=== PATIENT | female | born 1975 | race Caucasian/White ===

== ENCOUNTER 2018-12-27 19:46 | Emergency (ER) | payer OTHER ==
[~2018-12-27] VITALS: Ht 149.9 cm; Wt 90.7 kg
[2018-12-27 20:26] VITALS: BP 172/120
--- NOTE | 2018-12-27 22:03 | NUR ---
PT AMBULATED TO ER [facility]
[2018-12-27] MEDS ORDERED: methylPREDNISolone SS 125 MG in WATER STERILE 2 ML IM ONE (22:05)
[2018-12-27] MEDS ORDERED: KETOROLAC 60 MG/2 ML VIAL IM ONE (22:05)
[2018-12-27] MEDS ORDERED: ALBUTEROL 0.083% 2.5 MG/3 ML NEBU INH ONE (22:05)
--- NOTE | 2018-12-27 22:21 | NUR ---
RT GIVING BREATHING TX AT THIS TIME.
--- NOTE | 2018-12-27 22:30 | NUR ---
PT BIB SELF FOR SOB , AND ALLERGIES. PT STATES SOB STARTED TODAY. RR EVEN AND UNLABORED, WHEEZES NOTED THROUGHOUT. PT STATES SHE HAS INHALER AT HOME BUT IT WAS NOT HELPING. PT C/O COUGH, EYE REDNESS AND DRAINAGE. PT SITTING IN CHAIR IN NO RR DISTRESS.
--- NOTE | 2018-12-27 23:00 | NUR ---
Patient discharged with v/s stable. Written and verbal after care instructions given and explained. Patient alert, oriented and verbalized understanding of instructions. Ambulatory with steady gait. All questions addressed prior to discharge. ID band removed. Patient advised to follow up with PMD. Rx of ALLERA, PREDNISONE, ALBUTEROL given. Patient educated on indication of medication including possible reaction and side effects. Opportunity to ask questions provided and answered. D/C BY DR ZUNIGA
[2018-12-27 23:24] VITALS: BP 170/92
== END 2018-12-27 23:00 | disposition home or self-care (01) ==
LOC: MED 19:46
DX: J30.9 Allergic rhinitis, unspecified (principal)
CPT/HCPCS: 94640; 94760; 96372; 99283; J1885; J2930; J7613

== ENCOUNTER 2021-06-04 20:57 | Emergency (ER) | payer OTHER ==
[~2021-06-04] VITALS: Ht 149.9 cm; Wt 81.6 kg
[2021-06-04 21:07] VITALS: BP 175/109
[2021-06-04 21:49] LABS: BILIRUBIN,URINE NEGATIVE (NEGATIVE); BLOOD, URINE NEGATIVE (NEGATIVE); COLOR,URINE YELLOW (YELLOW); LEUKOCYTE ESTERASE ,URINE 1+ (NEGATIVE); NITRITE, URINE NEGATIVE (NEGATIVE); UGLUCOSE NEGATIVE (NEGATIVE)
[2021-06-04 22:00] LABS: APPEARANCE,URINE HAZY (CLEAR)
[2021-06-04 22:26] LABS: RBC,URINE 0-5 /HPF (0-5)
[2021-06-04] MEDS ORDERED: ONDANSETRON 4 MG/2 ML VIAL IVP ONE (23:30)
[2021-06-04] MEDS ORDERED: KETOROLAC 30 MG/ML VIAL IVP ONE (23:30)
[2021-06-04] MEDS ORDERED: MORPHINE SULFATE 2 MG/ML SYR IVP ONE (23:30)
[2021-06-04] MEDS ORDERED: NACL 0.9% 1,000 ML IV SCH (23:30)
[2021-06-04 23:51] LABS: BASOPHILS # (AUTO) 0.1 K/uL (0.00-0.22); BASOPHILS % (AUTO) 0.5 % (0.0-2.0); EOSINOPHILS # (AUTO) 0.1 K/uL (0-0.4); EOSINOPHILS % (AUTO) 1.5 % (0.0-4.0); HEMATOCRIT 35.9 % (36-48); HEMOGLOBIN 12.2 g/dL (12.0-16.0); LYMPHOCYTES # (AUTO) 3.7 K/uL (2.5-16.5); LYMPHOCYTES % (AUTO) 38.6 % (20.5-51.1); MEAN CORPUSCULAR HEMOGLOBIN 29 pg (27-31); MEAN CORPUSCULAR HGB CONC 34 g/dL (33-37); MEAN CORPUSCULAR VOLUME 85.4 fL (80-94); MONOCYTES # (AUTO) 0.6 K/uL (0.8-1.0); MONOCYTES % (AUTO) 6.7 % (1.7-9.3); NEUTROPHILS % (AUTO) 52.7 % (42.2-75.2); PLATELET COUNT (AUTO) 357 K/uL (140-450); RED BLOOD CELL COUNT(AUTO) 4.21 MIL/uL (4.20-5.40); RED CELL DISTRIBUTION WIDTH 14.2 % (11.6-13.7); WHITE BLOOD COUNT (AUTO) 9.5 K/uL (4.8-10.8)
[2021-06-05 00:32] LABS: ALBUMIN 3.6 g/dL (3.4-5.0); ANION GAP 11.1 (8-16); CARBON DIOXIDE 28.7 mmol/L (21-32); CREATININE 0.8 mg/dL (0.6-1.3); TOTAL BILIRUBIN 0.3 mg/dL (0.0-1.0)
[2021-06-05 00:34] LABS: POTASSIUM 2.8 mmol/L (3.5-5.1)
[2021-06-05] MEDS ORDERED: POTASSIUM CHLORIDE 10 MEQ TABER PO ONE (00:35)
[2021-06-05] MEDS ORDERED: CLONIDINE HYDROCHLORIDE 0.1 MG TAB PO ONE (01:00)
[2021-06-05] MEDS ORDERED: CEPH-588 PO (02:59)
[2021-06-05] MEDS ORDERED: CLON0.1T16 PO (02:59)
[2021-06-05] MEDS ORDERED: cephALEXin 500 MG CAP PO ONE (03:00)
[2021-06-05 03:20] VITALS: BP 136/89
== END 2021-06-05 03:20 | disposition home or self-care (01) ==
LOC: MED 20:57
DX: R10.9 Unspecified abdominal pain (principal); E87.6 Hypokalemia; I10 Essential (primary) hypertension; J45.909 Unspecified asthma, uncomplicated; E03.9 Hypothyroidism, unspecified; Z87.448 Personal history of other diseases of urinary system
CPT/HCPCS: 36415; 74176; 80053; 81001; 84703; 85025; 87086; 96361; 96374; 96375; 99284; J1885; J2270; J2405; J7030; 81003

== ENCOUNTER 2021-07-21 20:25 | Emergency (ER) | payer OTHER ==
[~2021-07-21] VITALS: Ht 149.9 cm; Wt 87.1 kg
[~2021-07-21 20:25] MED LIST: CEPH-588 PO; CLON0.1T16 PO
[2021-07-21 20:54] VITALS: BP 198/119
--- NOTE | 2021-07-21 21:01 | NUR ---
patient to the bathroom for urine collection
--- NOTE | 2021-07-21 21:15 | NUR ---
patient to bed 8
--- NOTE | 2021-07-21 21:35 | NUR ---
URINE OBTAINED ; URINE PREG NEG
--- NOTE | 2021-07-21 22:35 | NUR ---
Dr. Cuellar examining patient.
[2021-07-21] MEDS ORDERED: diphenhydrAMINE 50 MG/ML VIAL IVP ONE (22:40)
[2021-07-21] MEDS ORDERED: PROCHLORPERAZINE 10 MG/2 ML VIAL IVP ONE (22:40)
[2021-07-21] MEDS ORDERED: NACL 0.9% 1,000 ML IV ONE (22:40)
--- NOTE | 2021-07-21 23:26 | NUR ---
PT RESTING 8/10 PAIN. FAMILY AT BEDSIDE
[2021-07-21] MEDS ORDERED: MORPHINE SULFATE 4 MG/ML SYR IVP ONE (23:40)
--- NOTE | 2021-07-21 23:47 | NUR ---
PT PLACED ON MONITOR.
--- NOTE | 2021-07-22 00:15 | NUR ---
PT RESTING , 06/30. PT STATES PAIN IS MUCH BETTER. B/P RETAKEN. SEE VITAL SIGNS
--- NOTE | 2021-07-22 01:01 | NUR ---
ER MD DR CHING AWARE OF PATIENTS CURRENT B/P READINGS
[2021-07-22] MEDS ORDERED: IBUP-2213 PO (01:03)
[2021-07-22] MEDS ORDERED: ACET-8386 PO (01:03)
[2021-07-22 01:25] VITALS: BP 176/107
--- NOTE | 2021-07-22 01:25 | NUR ---
Patient discharged with v/s stable. Written and verbal after care instructions given and explained. Patient verbalized understanding. Ambulatory with steady gait. All questions addressed prior to discharge. Advised to follow up with PMD.
--- NOTE | 2021-07-22 05:49 | NUR ---
The patient's care was reviewed and supervised by Ligia Melendrez RN. Chart checked.
== END 2021-07-22 01:25 | disposition home or self-care (01) ==
LOC: MED 20:25
DX: R51.9 Headache, unspecified (principal); R11.2 Nausea with vomiting, unspecified; I10 Essential (primary) hypertension; E03.9 Hypothyroidism, unspecified; Z98.890 Other specified postprocedural states; Z90.710 Acquired absence of both cervix and uterus; Z79.899 Other long term (current) drug therapy
CPT/HCPCS: 81002; 81025; 96361; 96374; 96375; 99284; J0780; J1200; J2270; J7030

== ENCOUNTER 2022-04-02 17:22 | Emergency (ER) | payer OTHER ==
[~2022-04-02] VITALS: Ht 149.9 cm; Wt 88.0 kg
[~2022-04-02 17:22] MED LIST changes: +ACET-8905 PO; +IBUP-2213 PO
[2022-04-02 17:35] VITALS: BP 179/100
--- NOTE | 2022-04-02 17:41 | NUR ---
DR. RICKETTS EVALUATING PATIENT IN TRIAGE
[2022-04-02] MEDS ORDERED: TRAM-748 PO (18:09)
[2022-04-02] MEDS ORDERED: NAPR-1704 PO (18:09)
--- NOTE | 2022-04-02 18:32 | NUR ---
Patient discharged with v/s stable. Written and verbal after care instructions given and explained for Cervical Radiculopathy. Patient alert, oriented and verbalized understanding of instructions. Ambulatory with steady gait. All questions addressed prior to discharge. ID band removed. Patient advised to follow up with PMD. Rx of Ultram, naproxen given. Patient educated on indication of medication including possible reaction and side effects. Opportunity to ask questions provided and answered.
== END 2022-04-02 18:32 | disposition home or self-care (01) ==
LOC: MED 17:22
DX: M54.12 Radiculopathy, cervical region (principal); I10 Essential (primary) hypertension; E03.9 Hypothyroidism, unspecified; Z87.448 Personal history of other diseases of urinary system; Z79.899 Other long term (current) drug therapy; Z79.891 Long term (current) use of opiate analgesic; Z79.2 Long term (current) use of antibiotics; Z79.1 Long term (current) use of non-steroidal anti-inflammatories (NSAID)
CPT/HCPCS: 73030; 93005; 99283

== ENCOUNTER 2022-10-04 17:05 | Emergency (ER) | payer OTHER ==
[~2022-10-04] VITALS: Ht 154.9 cm; Wt 86.2 kg
[~2022-10-04 17:05] MED LIST changes: +NAPR-1704 PO; +TRAM-748 PO
[2022-10-04 17:11] VITALS: BP 190/122; PULSE 91; RESP 18; TEMP 98.3; O2SAT 98
[2022-10-04] MEDS ORDERED: MORPHINE SULFATE 2 MG/ML SYR IVP STA (17:14)
[2022-10-04] MEDS ORDERED: diphenhydrAMINE 50 MG/ML VIAL IVP ONE (17:15)
[2022-10-04] MEDS ORDERED: ONDANSETRON 4 MG/2 ML VIAL IVP ONE (17:15)
[2022-10-04] MEDS ORDERED: NACL 0.9% 1,000 ML IV ONE (17:15)
[2022-10-04 17:52] VITALS: O2SAT 98
--- NOTE | 2022-10-04 17:52 | NUR ---
47YO F PRESENTS W/MID TO EPIGASTRIC ABD PAIN X 1 WK WORSENED 2 DAYS AGO, NAUSEA, VOMITING, CONSTIPATION, DIZZY, WEAK, TIRED, URINARY FREQUENCY, URINARY RETENSION. NOTED. PT DENIES FEVER, ARZATE, DIARRHEA, FLU SYMPTOMS, SOB, CP, DIET CHANGES. 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 HX: HYSTORECTOMY, MULTIPLE C-SEC
[2022-10-04 18:05] LABS: APPEARANCE,URINE CLEAR (CLEAR); BILIRUBIN,URINE NEGATIVE (NEGATIVE); BLOOD, URINE NEGATIVE (NEGATIVE); COLOR,URINE YELLOW (YELLOW); LEUKOCYTE ESTERASE ,URINE NEGATIVE (NEGATIVE); NITRITE, URINE NEGATIVE (NEGATIVE); PH,URINE 6.5 (5.0-9.0); UGLUCOSE NEGATIVE (NEGATIVE)
[2022-10-04 18:06] LABS: BASOPHILS # (AUTO) 0.1 K/uL (0.00-0.22); BASOPHILS % (AUTO) 1.3 % (0.0-2.0); EOSINOPHILS # (AUTO) 0.2 K/uL (0-0.4); EOSINOPHILS % (AUTO) 1.8 % (0.0-4.0); HEMATOCRIT 38.3 % (36-48); HEMOGLOBIN 12.7 g/dL (12.0-16.0); LYMPHOCYTES # (AUTO) 3.2 K/uL (2.5-16.5); LYMPHOCYTES % (AUTO) 29.3 % (20.5-51.1); MEAN CORPUSCULAR HEMOGLOBIN 29 pg (27-31); MEAN CORPUSCULAR HGB CONC 33 g/dL (33-37); MEAN CORPUSCULAR VOLUME 86.2 fL (80-94); MONOCYTES # (AUTO) 0.9 K/uL (0.8-1.0); NEUTROPHILS # (AUTO) 6.5 K/uL (1.8-7.7); NEUTROPHILS % (AUTO) 59.6 % (42.2-75.2); PLATELET COUNT (AUTO) 356 K/uL (140-450); RED BLOOD CELL COUNT(AUTO) 4.44 MIL/uL (4.20-5.40); RED CELL DISTRIBUTION WIDTH 14.7 % (11.6-13.7)
[2022-10-04 18:47] LABS: ALBUMIN 3.6 g/dL (3.4-5.0); ANION GAP 14.4 (8-16); CARBON DIOXIDE 25.1 mmol/L (21-32); CREATININE 0.9 mg/dL (0.6-1.3); POTASSIUM 3.5 mmol/L (3.5-5.1); TOTAL BILIRUBIN 0.3 mg/dL (0.0-1.0)
[2022-10-04] MEDS ORDERED: LABETALOL 20 MG/4 ML VIAL IVP ONE (19:25)
--- NOTE | 2022-10-04 19:25 | NUR ---
BP OF 173/103, DR. TIWARI AWARE.
--- NOTE | 2022-10-04 19:28 | NUR ---
TRANSFER OF CARE GIVEN TO BENNETT SMITH. ALL QUESTIONS ANSWERED.
--- NOTE | 2022-10-04 19:30 | NUR ---
pt resting on bed, A/ox4. not in distress. on monitor, ' call light within reach. pt instructed on how to use call light. pt returned demonstration. all needs met at this time. bed locked in lowest position. side rails x2 for safety
[2022-10-04] MEDS ORDERED: AMOX500C25 PO ×2 (19:45→20:11)
[2022-10-04] MEDS ORDERED: SIME80TA41 PO ×2 (19:45→20:11)
[2022-10-04] MEDS ORDERED: AZIT250T3 PO ×2 (19:45→20:11)
[2022-10-04] MEDS ORDERED: ONDA-188 PO ×2 (19:45→20:11)
[2022-10-04] MEDS ORDERED: BISM262C10 PO ×2 (19:45→20:11)
[2022-10-04] MEDS ORDERED: AZITHROMYCIN 250 MG TAB PO ONE (19:45)
[2022-10-04] MEDS ORDERED: AMOXICILLIN 500 MG CAP PO ONE (19:45)
--- NOTE | 2022-10-04 19:55 | NUR ---
ermd at bedside
[2022-10-04 20:10] VITALS: BP 155/98; PULSE 80; RESP 15; TEMP 98.3; O2SAT 99
--- NOTE | 2022-10-04 20:10 | NUR ---
Patient discharged with v/s stable. Written and verbal after care instructions given and explained. Patient alert, oriented and verbalized understanding of instructions. Ambulatory with steady gait. All questions addressed prior to discharge. ID band removed. Patient advised to follow up with PMD. Rx given to pt. Patient educated on indication of medication including possible reaction and side effects. Opportunity to ask questions provided and answered.
== END 2022-10-04 20:10 | disposition home or self-care (01) ==
LOC: MED 17:05
DX: R10.84 Generalized abdominal pain (principal); J18.1 Lobar pneumonia, unspecified organism; I10 Essential (primary) hypertension; J45.909 Unspecified asthma, uncomplicated; E03.9 Hypothyroidism, unspecified; Z98.890 Other specified postprocedural states; Z90.710 Acquired absence of both cervix and uterus; Z79.899 Other long term (current) drug therapy
CPT/HCPCS: 36415; 74176; 80053; 81003; 81025; 83690; 85025; 96361; 96374; 96375; 99285; J1200; J2270; J2405; J3490; J7030

== ENCOUNTER 2023-03-10 17:02 | Emergency (ER) | payer SELFPAY ==
[~2023-03-10] VITALS: Ht 149.9 cm; Wt 86.2 kg
[~2023-03-10 17:02] MED LIST changes: +AMOX500C25 PO; +AZIT250T3 PO; +BISM262C10 PO; +ONDA-188 PO; +SIME80TA41 PO
[2023-03-10 17:33] VITALS: BP 151/98; PULSE 111; RESP 18; TEMP 98; O2SAT 95
== END 2023-03-10 21:34 | disposition left against medical advice (07) ==
LOC: MED 17:02
DX: R51.9 Headache, unspecified (principal); Z53.21 Procedure and treatment not carried out due to patient leaving prior to being seen by health care provider
CPT/HCPCS: 99281